=== PATIENT | female | born 1935 | race Two or more races ===

== ENCOUNTER 2023-07-21 11:52 | Outpatient (CLI) | payer OTHER | END 2023-07-21 11:59 | disposition home or self-care (01) | LOC: RAD 11:52 | PROVIDERS: ATTEND Orthopaedic Surgery | DX: M25.511 Pain in right shoulder (principal); M25.551 Pain in right hip; M25.552 Pain in left hip; M25.561 Pain in right knee; M25.562 Pain in left knee; M54.50 Low back pain, unspecified ==

== ENCOUNTER 2023-07-22 10:48 | Outpatient (CLI) | payer OTHER | END 2023-07-22 10:56 | disposition home or self-care (01) | LOC: LAB 10:48 | PROVIDERS: ATTEND Orthopaedic Surgery | DX: E55.9 Vitamin D deficiency, unspecified (principal); M85.9 Disorder of bone density and structure, unspecified; E56.1 Deficiency of vitamin K ==

== ENCOUNTER → 2023-08-07 | Outpatient (CLI) | payer OTHER | END | disposition home or self-care (01) | LOC: NUCLEAR 13:30 | PROVIDERS: ATTEND Orthopaedic Surgery | DX: M81.0 Age-related osteoporosis without current pathological fracture (principal) ==